=== PATIENT | female | born 1940 | race Caucasian/White ===

== ENCOUNTER 2018-09-28 05:21 | Inpatient (IN) | payer OTHER ==
[2018-09-19 13:01] LABS: URINE BILIRUBIN NEGATIVE (Negative); URINE BLOOD NEGATIVE (Negative); URINE CLARITY CLEAR; URINE COLOR YELLOW; URINE GLUCOSE-RANDOM* NEGATIVE (Negative); URINE KETONES NEGATIVE (Negative); URINE LEUKOCYTES-REFLEX NEGATIVE (Negative); URINE NITRITE-REFLEX NEGATIVE (Negative); URINE PROTEIN (DIPSTICK) NEGATIVE (Negative); URINE UROBILINOGEN 0.2 E.U./dl (0.2-1.0)
[2018-09-19 13:05] LABS: HEMATOCRIT 34.9 % (37.0-47.0); HEMOGLOBIN 11.6 gm/dL (12.0-15.0); MCH 33.2 pg (26.0-34.0); MCHC 33.2 g/dL (28.0-37.0); MCV 99.9 fL (80.0-100.0); RBC 3.49 mil/uL (4.20-5.00); RDW 12.7 % (10.5-14.5); WBC 7.5 thou/uL (4.0-11.0)
[2018-09-19 13:10] LABS: ALBUMIN 3.5 g/dL (3.4-5.0); CALCIUM 9.2 mg/dL (8.5-10.1); CREATININE 1.4 mg/dL (0.6-1.0); POTASSIUM 5.2 mmol/L (3.5-5.1)
[2018-09-19 13:16] LABS: INR 1.1; PROTIME 10.8 Seconds (9.3-11.4)
[~2018-09-28] VITALS: Ht 160 cm; Wt 78.5 kg
--- NOTE | ~2018-09-28 | EKG ---
[address] [address] ELECTROCARDIOGRAM REPORT Name: JONNIECATRACHITO Room #: [facility] IN ..#: [id number] Admission: Attend Phys: Ian Lundberg MD Discharge: Date of : 36 Report #: [id number] THIS REPORT FOR: //name// [facility] Test Date: 2018-09-19 Test Time: 12:59:28 Pat Name: CATRACHITO CRISTINA Department: Room: Gender: F Broadcast Chief Engineer: donna : 1940 Requested By: Ian Lundberg Order Number: [id number] MD: Luis Saunders Measurements Intervals [place] Rate: 55 P: 17 DC: 164 QRS: 44 QRSD: 96 T: 20 QT: 447 QTc: 428 Interpretive Statements Sinus bradycardia Otherwise no significant abnormality No previous ECG available for comparison Electronically Signed On 09-19-2018 17:11:17 CDT by Luis Saunders [email or web address] <ELECTRONICALLY SIGNED> By: Luis Saunders MD, [facility] 09/19/18 1711 [id number] Luis Saunders MD, FACC /EPI
--- NOTE | ~2018-09-28 | O ---
[facility] [place] [address] OPERATIVE REPORT Name: CATRACHITO CRISTINA Room #: 150-1 ADM IN M.R.#: [id number] Admission: 09/28/18 Attend Phys: Ian Lundberg MD Discharge: Date of : 36 Report #: [id number] THIS REPORT FOR: //name// CC: [facility] physician/PCP Ian Lundberg DATE OF SERVICE: 09/28/2018 PREOPERATIVE DIAGNOSIS: Left knee medial compartment osteoarthritis. POSTOPERATIVE DIAGNOSIS: Left knee tricompartmental osteoarthritis. PROCEDURE: Left total knee arthroplasty with Navio assistance. SURGEON: Ian Lundberg MD. CIGAR PATCHER: Christine Ko PA-C. INDICATIONS FOR CIGAR PATCHER: Throughout the case, extensive retraction and manipulation of the knee was required. This was afforded to me by my account management assistant. ANESTHESIA: LMA with an adductor canal block. IMPLANTS: Arvizu and Nephew size 5 Legion cobalt chrome posterior stabilized femur, size 3 tibia, size 11 polyethylene and a size 32 patella. TOURNIQUET TIME: 72 minutes. ESTIMATED BLOOD LOSS: 25 mL. COMPLICATIONS: None. SPECIMENS: None. CONDITION UPON LEAVING THE OPERATING ROOM: Stable. INDICATION FOR PROCEDURE: The patient is an 78-year-old female with left knee medial compartment osteoarthritis. She had failed conservative measures for this and after discussion with her, she elected for left medial compartment arthroplasty versus possible total knee arthroplasty. DESCRIPTION OF PROCEDURE: Risks, benefits, alternatives, complications were discussed in detail with the patient including but not limited to risk of anesthesia, risk of damage to nerves, arteries, blood vessels, risk for infection, bleeding, risk for continued knee pain, need for reoperation. Informed consent was obtained from the patient. Left knee was appropriately [address] [address] OPERATIVE REPORT Name: CATRACHITO CRISTINA Room #: 150-1 ADM IN M.R.#: [id number] Admission: 09/28/18 Attend Phys: Ian Lundberg MD Discharge: Date of : 36 Report #: [id number] marked in the preoperative holding area. Adductor canal block placed by Anesthesia. IV Ancef given for preoperative antibiotics. She was brought to the operating room and placed in supine position on operating room table. LMA anesthesia was induced without complication. Tourniquet was placed on the left thigh. Left lower extremity was prepped and draped in normal sterile fashion. Timeout was performed, properly identifying the patient and procedure as well as the instrumentation and implants. All in the operating room were in agreement. Left lower extremity was exsanguinated, tourniquet was inflated. Tourniquet time was 72 minutes. Standard midline approach to knee was made with 10 blade through the skin. Dissection was taken down sharply to the fascia and deep flaps were developed medially and laterally. A medial parapatellar arthrotomy was made and the knee was inspected. There was severe medial compartment osteoarthritis. There was moderate patellofemoral osteoarthritis. It was decided to proceed with total knee arthroplasty given the amount of patellofemoral arthrosis. Anterior horns of meniscus were removed sharply. ACL was removed sharply. Reference pins were then placed in the femur and the tibia and the knee was then mapped digitally using the Navio robotic account management assistant. Intraoperative plan was made and found to be a size 5 narrow femur and size 3 tibia. After acceptance of the plan, the distal femoral cut was made using the Navio bur and the 4-in-1 size 5 cutting block was placed on the femur. Anterior, posterior, and chamfer cuts were made. After this, attention was turned to the tibia. The remainder of the menisci removed with Bovie cautery. The tibial resection guide was pinned in place using the Navio robotic-assisted for placement. Tibial resection was made. After this flexion and extension gaps were checked and found to be mildly tight medially in extension and a limited medial release was performed using the pie crust technique and an 11 blade. This balanced the knee well. After this, the tibia sized, found to be a size 3. Size 3 tibial trial was pinned and punched and size 5 femoral trial was placed and the box cut was made. This was then trialed with a size 10 and then a size 11 polyethylene and a size 11 polyethylene had the best balance in flexion and extension both medially as well as digitally using the Navio robot. A 9 mm was taken off the posterior surface of the patella and a size 32 patellar trial button was placed. Knee was taken through range of motion, found to be stable, found to have good patellar tracking. Trial components were removed. Bony ends were thoroughly irrigated with normal saline. A final size 3 tibia, size 5 Legion cobalt chrome posterior stabilized femur and a size 32 patella were cemented in place using standard cementation techniques. While the cement cured, a periarticular injection consisting of morphine, ropivacaine, epinephrine and Toradol was placed around the joint capsule and tissues. After the cement cured, the tourniquet was deflated. Hemostasis was obtained with Bovie cautery. A final size 11 polyethylene was placed. A gram of vancomycin was placed deep in the joint. The fascia was closed with 0 Vicryl, skin was closed with 2-0 Vicryl and 3-0 Monocryl. Dermabond and a DANILO dressing was [address] [address] OPERATIVE REPORT Name: CATRACHITO CRISTINA Room #: 150-1 [facility] IN .R.#: [id number] Admission: 09/28/18 Attend Phys: Ina Lundberg MD Discharge: Date of : 36 Report #: [id number] applied. The patient tolerated this procedure well and went to the recovery room under care of anesthesia postoperatively. By: 1636 1709 Ian Lundberg MD /nt
[~2018-09-28 05:21] MED LIST: ADULT ASPIRIN81 MG PO; ATORVASTATIN CA40 MG PO; COLESTIPOL HCL1 G1 PO; DAILY FIBER0.52 GM PO; DILTIAZEM 24HR300 M2 PO; LISINOPRIL-HCT1 EAC2 PO; LUNESTA2 MG PO; VITAMIN B125000 MCG PO; VITAMIN D35000 UNI1 PO
[2018-09-28 13:41] VITALS: BP 123/52
[2018-09-28 17:39] VITALS: BP 101/58
[2018-09-28 20:10] VITALS: BP 99/45
[2018-09-29 04:41] VITALS: BP 103/46
[2018-09-29 06:16] LABS: MCH 34.3 pg (26.0-34.0); MCHC 34.6 g/dL (28.0-37.0); RBC 2.93 mil/uL (4.20-5.00); RDW 12.3 % (10.5-14.5); WBC 11.8 thou/uL (4.0-11.0)
[2018-09-29 07:38] VITALS: BP 97/49
[2018-09-29] MEDS ORDERED: NEURONTIN 300300 M1 PO (11:48)
[2018-09-29] MEDS ORDERED: TRI-BUFFERED A325 M1 PO (11:48)
[2018-09-29 13:02] VITALS: BP 97/49
[2018-09-29 15:47] VITALS: BP 97/49
[2018-09-29 15:53] VITALS: BP 110/45
== END 2018-09-29 17:08 | disposition home or self-care (01) | DRG 470 ==
LOC: 4E 05:21 → TBA 05:21 → PRE 05:42 → 4E 17:00 → ENTRNSPT 09-29 16:23 → 4E 09-29 17:08
PROVIDERS: Orthopaedic Surgery
PROC: 0SRD0J9 Replacement of Left Knee Joint with Synthetic Substitute, Cemented, Open Approach (ICD-10-PCS; principal; 2018-09-28)
DX: M17.12 Unilateral primary osteoarthritis, left knee (principal); I10 Essential (primary) hypertension; E78.5 Hyperlipidemia, unspecified; I25.10 Atherosclerotic heart disease of native coronary artery without angina pectoris; E66.9 Obesity, unspecified; Z68.30 Body mass index [BMI] 30.0-30.9, adult; Z79.899 Other long term (current) drug therapy; Z88.2 Allergy status to sulfonamides
CPT/HCPCS: 10783; 50010; 50101; 50415; 50954; 51130; 51225; 51771; 53000; 53078; 53364; 54118; 56527; 56528; 57095; 57103; 57109; 57110; 57113; 57127; 62110; 62900; 64039; 70005

== ENCOUNTER 2020-01-17 10:18 | Inpatient (IN) | payer OTHER ==
[2020-01-03 13:16] LABS: URINE BILIRUBIN NEGATIVE (Negative); URINE BLOOD NEGATIVE (Negative); URINE CLARITY CLEAR; URINE COLOR YELLOW; URINE GLUCOSE-RANDOM* NEGATIVE (Negative); URINE KETONES TRACE (Negative); URINE LEUKOCYTES-REFLEX NEGATIVE (Negative); URINE NITRITE-REFLEX NEGATIVE (Negative); URINE PROTEIN (DIPSTICK) NEGATIVE (Negative); URINE SPECIFIC GRAVITY 1.025 (1.005-1.035); URINE UROBILINOGEN 0.2 E.U./dl (0.2-1.0)
[2020-01-03 13:17] LABS: HEMATOCRIT 39.5 % (37.0-47.0); HEMOGLOBIN 12.7 gm/dL (12.0-15.0); MCH 31.8 pg (26.0-34.0); MCHC 32.1 g/dL (28.0-37.0); MCV 98.8 fL (80.0-100.0); RDW 13.4 % (10.5-14.5); WBC 12.5 thou/uL (4.0-11.0)
[2020-01-03 13:24] LABS: ALBUMIN 3.4 g/dL (3.4-5.0); CALCIUM 8.4 mg/dL (8.5-10.1); CREATININE 1.5 mg/dL (0.6-1.0); POTASSIUM 4.5 mmol/L (3.5-5.1)
[2020-01-03 13:32] LABS: INR 1.1; PROTIME 11.4 Seconds (9.3-11.4)
[~2020-01-17] VITALS: Ht 160 cm; Wt 83.5 kg
--- NOTE | ~2020-01-17 | O ---
[facility] [place] [address] OPERATIVE REPORT Name: CATRACHITO CRISTINA Room #: 436-P ADM IN M.R.#: [id number] Admission: 01/17/20 Attend Phys: Ian Lundberg MD Discharge: Date of : 36 Report #: [id number] THIS REPORT FOR: cc: ERIN - Luz Marina family physician/PCP ERIN - Luz Marina family physician/PCP Ian Lundberg MD ~ CC: ERIN physician/PCP Ian Lundberg DATE OF SERVICE: 01/17/2020 PREOPERATIVE DIAGNOSIS: Right knee osteoarthritis. POSTOPERATIVE DIAGNOSIS: Right knee osteoarthritis. PROCEDURE: Total knee arthroplasty using Navio robotic wet process miller head assistant. SURGEON: Ian Lundberg MD. CARAMEL CUTTER HAND: Christine Ko PA-C. INDICATIONS FOR CARAMEL CUTTER HAND: Throughout the case, extensive retraction and manipulation of the knee was required. This was afforded to me by my wet process miller head assistant. ANESTHESIA: LMA with an adductor canal block. IMPLANTS: Arvizu and Nephew size 5 narrow Legion cobalt chrome posterior stabilized femur __. TOURNIQUET TIME: 51 minutes. ESTIMATED BLOOD LOSS: 25 mL. COMPLICATIONS: None. SPECIMENS: None. CONDITION UPON LEAVING THE OPERATING ROOM: Stable. INDICATIONS FOR PROCEDURE: The patient is an 79-year-old female with severe right knee osteoarthritis. She had failed conservative measures for this and after discussion with her, she elected for right total knee arthroplasty. DESCRIPTION OF PROCEDURE: Risks, benefits, alternatives, complications were discussed in detail with the patient including but not limited to risk of anesthesia, risk of damage to nerves, arteries, blood vessels, risk for [facility] [address] [place] [address] OPERATIVE REPORT Name: CATRACHITO CRISTINA Room #: 436-P [facility] IN M.R.#: [id number] Admission: 01/17/20 Attend Phys: Ian Lundberg MD Discharge: Date of : 36 Report #: [id number] infection, bleeding, risk for continued knee pain, need for reoperation. Informed consent was obtained from the patient. Right knee was appropriately marked in the preoperative holding area. IV Ancef was given for preoperative antibiotics. She was brought to the operating room and placed in supine position on operating room table. LMA anesthesia was induced without complication. Tourniquet was placed on the right thigh. Right lower extremity was prepped and draped in normal sterile fashion. Timeout was performed properly identifying the patient and procedure as well as the instrumentation and implants. All in the operating room were in agreement. Right lower extremity was exsanguinated, tourniquet was inflated. Tourniquet time was 51 minutes. Standard midline approach to knee was made with 10 blade through the skin. Dissection was taken down sharply to the fascia. Deep flaps were developed medially and laterally. Fresh 10 blade was used to make a medial parapatellar arthrotomy and the knee was inspected. There was severe tricompartmental osteoarthritis. ACL and PCL were removed sharply. Reference pins were placed in the femur and the tibia. The knee was then digitally mapped using the Zoomingo robotic system. Intraoperative plan was made and we sized the size 5 femur with a size 3 tibia and a size 11 spacer. After acceptance of the intraoperative plan, the distal femoral cut was made with a Navio fady. The 4-in-1 cutting block was placed. Anterior, posterior and chamfer cuts were made on the femur. Attention was then turned to the tibia. Remainder of the menisci removed with Bovie cautery. The tibial resection guide was pinned in place using the Navio for placement and tibial resection was made. After this, flexion and extension gaps were checked and found to have good balance in flexion and extension both medially and laterally. Tibia was sized, found to be a size 3. A size 3 tibial trial was placed, pinned and punched. A size 5 femoral trial was placed and the box cut was made. This was then trialed with a size 9 polyethylene. Knee was taken through range of motion, found to be stable, found to have good balance in flexion and extension both medially and laterally. A 9 mm was resected from the posterior surface of the patella and a size 35 patellar trial button was placed. Knee was taken through range of motion, found to be stable, found to have good patellar tracking. Trial components were removed. Bony ends were thoroughly irrigated with normal saline. A final size 3 tibia size 5 Legion narrow cobalt chrome posterior stabilized femur and a size 35 patella were cemented in place using standard cementation techniques. While the cement cured, a periarticular injection again epinephrine and Toradol was placed around the knee joint capsule. After the cement cured, tourniquet was deflated. Hemostasis was obtained with Bovie cautery. Final size 9 polyethylene was placed. A gram of vancomycin was placed deep in the joint. Fascia was closed with 0 Vicryl, skin was closed with 2-0 Vicryl, 3-0 Monocryl. Dermabond and a DANILO dressing was applied. The patient [facility] [address] [place] [address] OPERATIVE REPORT Name: CATRACHITO CRISTINA Room #: 436-P [facility] IN M.R.#: [id number] Admission: 01/17/20 Attend Phys: Ian Lundberg MD Discharge: Date of : 36 Report #: [id number] tolerated this procedure well and went to recovery room under care of anesthesia postoperatively. By: 1622 1728 Ian Lundberg MD /nt
[~2020-01-17 10:18] MED LIST changes: +ALPRAZOLAM 0.50.5 M1 PO; +ASPIR 8181 MG PO; -ATORVASTATIN CA40 MG PO; +CARDIZEM CD 30300 M1 PO; +LIPITOR40 MG PO; +NEURONTIN 300300 M1 PO; +NEURONTIN300 MG PO; +PROBIOTIC1 EAC7 PO; +STOOL SOFTENER100 M1 PO; +TRI-BUFFERED A325 M1 PO; +VITAMIN D3125 MC2 PO; -VITAMIN D35000 UNI1 PO
[2020-01-17 11:32] VITALS: BP 124/54
[2020-01-17 19:27] VITALS: BP 102/50
--- NOTE | 2020-01-18 03:00 | NUR ---
ALERT AND ORIENTED. S/P R TKR. DANILO DRSG AND POLAR TABBY IN PLACE. PT BEEN ABLE TO WALK TO THE BATHROOM USING WALKER AND GAITBELT. DENIES ANY NAUSEA OR VOMITING-EATING REGUALR FOOD.PROGRESSING TOWARD CARE GOALS.
[2020-01-18 04:24] VITALS: BP 116/58
[2020-01-18 06:02] LABS: HEMATOCRIT 29.8 % (37.0-47.0); HEMOGLOBIN 10.1 gm/dL (12.0-15.0); MCH 33.1 pg (26.0-34.0); MCHC 33.9 g/dL (28.0-37.0); MCV 97.7 fL (80.0-100.0); RBC 3.05 mil/uL (4.20-5.00); RDW 13.2 % (10.5-14.5); WBC 7.2 thou/uL (4.0-11.0)
[2020-01-18 07:28] VITALS: BP 115/57
[2020-01-18] MEDS ORDERED: ASPIR 8181 MG PO (09:47)
--- NOTE | 2020-01-18 13:50 | NUR ---
PT ADMITTED RELATED TO RIGHT TKR. CM REVIEWED CHART AND SPOKE WITH CARE TEAM. CM MET WITH PT AT BEDSIDE THIS DAY. PT IS A&O X4. CM ROLE INTRODUCED. PT INDICATED THAT SHE LIVES IN A HOUSE WITH HER SPOUSE WITH 4 STEPS TO ENTER AND 12 STEPS TO BASEMENT. PT INDICATED SHE HAS A FWW FOR HOME USE. PT INDICATED SHE HAS OP PT APPOINTMENT HERE AT [facility] ON WEDNESDAY. IT IS ANTICIPATED THAT PT WILL DISCHARGE HOME THIS DAY. NO OTHER CM INTERVENTION INDICATED. CASE CLOSED.
--- NOTE | 2020-01-18 14:03 | NUR ---
ASSUMED CARE OF THE PT AT 0700. PT IS UP WITH ASSIST, WORKED WITH PT WITH GAIT BELT AND WALKER/ CLEARED FOR DC. L HAND IV DRY AND INATCT AND D/C'D. PAIN CONTROLELD BY PAIN MEDS. PT IS RA. KAYLYNN SWAIN, SCD'S POLAR PACK AND DANILO DRESSING IN PLACE. PT BELONGINGS SENT WITH PT, PPWK SIGNED AND RX'S FIVEN TO PT.
[2020-01-18 14:07] VITALS: BP 115/57
== END 2020-01-18 14:31 | disposition home or self-care (01) | DRG 470 ==
LOC: TBA 10:18 → 4S 10:18 → TBA 12:26 → 4S 16:05 → TBA 23:12 → ENTRNSPT 01-18 14:17 → EDTRNSPTSTS 01-18 14:19 → 4S 01-18 14:31
PROVIDERS: ADMIT Orthopaedic Surgery
PROC: 0SRC0J9 Replacement of Right Knee Joint with Synthetic Substitute, Cemented, Open Approach (ICD-10-PCS; principal; 2020-01-17)
PROC: 8E0Y0CZ Robotic Assisted Procedure of Lower Extremity, Open Approach (ICD-10-PCS; principal; 2020-01-17)
DX: M17.11 Unilateral primary osteoarthritis, right knee (principal); Z88.2 Allergy status to sulfonamides; Z79.899 Other long term (current) drug therapy; Z79.82 Long term (current) use of aspirin
CPT/HCPCS: 10102; 50010; 50101; 50415; 50954; 51130; 51225; 51320; 52001; 52282; 53078; 54118; 56527; 56528; 57095; 57103; 57104; 57110; 57127; 57180; 64042; 70005

== ENCOUNTER → 2020-12-10 | Outpatient (CLI) | payer OTHER ==
[~2020-12-10] VITALS: Ht 7.6 cm; Wt 85.5 kg
[~2020-12-10] MED LIST changes: +CARDIZEM CD300 MG PO; +COQ1050 MG PO; +DICLOFENAC POTA50 MG PO; +FISH OIL 1,0001 EAC9 PO
--- NOTE | ~2020-12-10 | HPC ---
[facility] [address] [place] [address] PAIN MANAGEMENT CONSULTATION Name: CATRACHITO CRISTINA Room #: REG MJ Belén.#: [id number] Admission: 12/10/20 Attend Phys: Olegario Matthews DO Discharge: Date of : 38 Report #: [id number] THIS REPORT FOR: cc: ERIN - No family physician/PCP FAM - No family physician/PCP Olegario Matthews DO ~ DATE OF SERVICE: 12/10/2020 CHIEF COMPLAINT: Low back pain, left lower extremity pain and paresthesias. HISTORY OF PRESENT ILLNESS: As you know, the patient is an 80-year-old female who reports acute onset of low back pain, left lower extremity pain and paresthesia that began 09/30/2020. The patient denies injury or trauma. She states her pain began spontaneously and progressively worsened. She sought evaluation after noting no improvement in symptoms with rest, relaxation and cmfr-ekx-sjrgsvk medications. She was subsequently then referred to undergo MRI of the lumbar spine, which was obtained 11/28/2020. Those findings showed wblrvkun-tm-yvuzqe multilevel lumbar spondylosis and dqzdhjsa-tc-alptqn central canal stenosis, prompting a referral to our clinic to discuss interventional treatment options. The patient reports today her pain is continuous. She describes the pain as burning, shooting, crushing, sharp, numbness and tingling, placing current pain score 10/10, daily average at 10/10, worst pain has been is 10/10. The patient states pain is exacerbated with walking, improves with sitting and lying down. She has been referred to our service to discuss treatment options to address suspected lumbar radiculopathy secondary to central canal stenosis. PAST MEDICAL HISTORY: 1. Hypertension. 2. Hyperlipidemia. 3. Chronic insomnia. 4. Diverticular disease of the colon. 5. History of heart murmur. 6. Degenerative joint disease. 7. Osteoarthritis. PAST SURGICAL HISTORY: 1. Left total knee arthroplasty. 2. Right total knee arthroplasty. 3. Hysterectomy. SOCIAL HISTORY: The patient denies tobacco, IV or illicit drug use. Admits to approximately 3 alcoholic beverages per week. She is retired, not working, not receiving workmen's compensation nor is she trying to obtain disability benefits. She is not in litigation in regards to pain. She is unaccompanied at [address] [address] PAIN MANAGEMENT CONSULTATION Name: CATRACHITO CRISTINA Room #: REG MJ Clark#: [id number] Admission: 12/10/20 Attend Phys: Olegario Matthews DO Discharge: Date of : 38 Report #: [id number] today's visit. REVIEW OF SYSTEMS: Positive for cataracts, shortness of breath walking or lying flat, heart trouble, palpitations, frequent diarrhea interspersed with constipation, rectal bleeding, rash and itching, varicose veins, lightheadedness and dizziness, numbness and tingling sensations, insomnia, low back pain, left lower extremity pain with paresthesias. All other review of systems negative per 12-point review of systems other than those listed in history of present illness. Pain impact score 37/70 indicating moderate interference of daily activities secondary to pain. ALLERGIES: SULFA. CURRENT MEDICATIONS: Cartia XT 300 mg once a day, Lipitor 20 mg per day, lisinopril 5 mg per day, alprazolam 0.5 mg once a day, vitamin B12 one mg once a day, multivitamin 1 tab per day. IMAGING: MRI lumbar spine obtained on 11/28/2020 shows T12-L1 with disk bulge, mild facet arthropathy, mild central canal stenosis, mild bilateral neural foraminal narrowing. L1-2 shows disk bulge, mild facet arthropathy, moderate central canal stenosis, mild bilateral neural foraminal narrowing. L2-3 shows a disk bulge, mild facet arthropathy, moderate central canal stenosis, moderate bilateral neural foraminal narrowing. L3-4 shows mild facet arthropathy, disk bulge, mild ligamentum flavum hypertrophy leading to lmtusmzw-as-enwunj central canal stenosis, pcgbbrpe-fg-fwubzn right and mild left neural foraminal narrowing. L4-5 shows disk bulge, moderate facet arthropathy, moderate spinal stenosis and kryj-sd-uxigrtnj neural foraminal narrowing. L5-S1 shows mild facet degenerative changes, disk bulge, mild central canal and mild neural foraminal narrowing. PQRS: The patient has known arthritic changes of the lumbar spine, bilateral hips and knees. No rheumatoid arthritis. She is not a fall risk, has not had a fall in last 3 months. She is treated for hypertension, but she is not on any chronic anticoagulants. She is not on any opioids, has a low opiate addiction potential based on assessment tool. Pain impact is 37/70, moderate interference of daily activities secondary to pain. PHYSICAL EXAMINATION: VITAL SIGNS: Blood pressure 147/83, pulse 72, respiratory rate 16 and unlabored. The patient is 98% on room air. Height 5 feet 3 inches tall, weight 188.6 pounds, BMI calculated 34.66. GENERAL: Well-developed, well-nourished, well-hydrated 80-year-old female appearing her stated age. She is in no acute distress, awake, alert and oriented x 3. Current pain score is rated around 9/10. [address] [address] PAIN MANAGEMENT CONSULTATION Name: CATRACHITO CRISTINA Room #: REG [facility]#: [id number] Admission: 12/10/20 Attend Phys: Olegario Matthews DO Discharge: Date of : 38 Report #: [id number] HEENT: Normocephalic, atraumatic. Pupils are round and reactive. Speech is fluent. The patient deemed a good historian. Hearing is appropriate. She is wearing a mask in compliance with COVID-19 regulations. LUNGS: Clear, no wheeze, rhonchi or rales. CARDIOVASCULAR: Regular. No appreciable gallop, no rub. ABDOMEN: Soft, nontender. EXTREMITIES: Show no clubbing, no cyanosis, and no edema. MUSCULOSKELETAL: Lower extremity strength is equal and symmetrical, though giveaway strength is noted on the left due to pain generation when compared to the right. Muscle bulk and tone is equal and symmetrical in comparing lower extremities. She is intact to light touch from L1 through S2 dermatomes. Deep tendon reflexes are diminished, but symmetrical, 1+/4 at patella and Achilles. Seated straight leg raising negative. Supine straight leg raising positive on the left. Jacek's test is negative. Gait is antalgic favoring left lower extremity over right. ASSESSMENT: 1. Symptomatic lumbar radiculopathy. 2. 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 3. Displacement of lumbar intervertebral disk with radiculopathy. 4. Lumbosacral spondylosis with radiculopathy. 5. Neural foraminal stenosis of lumbar spine. 6. Facet arthropathy of the lumbar spine. 7. Chronic intractable pain. PLAN: 1. Based on today's physical exam and history the patient has provided, the description the patient uses in regards to pain as well as the location of symptoms, which typically radiate down the left leg, but at night, she begins to experience paresthesias on the right leg. This would be consistent with central canal stenosis, the most significant of those findings at the L3-4 level based on recent imaging, which shows xwztoxvl-kl-hdfdaw central canal stenosis. We discussed with the patient the findings of her MRI and how they correlate to her current symptoms after this discussion, which took over 18 minutes of time as we had to describe the findings to the patient and then reiterate those findings to her who came late to the appointment. We then discussed the following for treatment options. We discussed physical therapy, stretching exercises and core strengthening as a treatment approach. We discussed medication management with suggestions of treatment to include amitriptyline, nortriptyline, Cymbalta, Lyrica or gabapentin. We discussed lumbar epidural injection under fluoroscopic guidance. We also discussed spinal cord stimulator therapy and surgical options that may be necessary to address the central canal stenosis at the L3-4 level. After reviewing the risks and benefits of all proposed treatment options, the patient chose to begin with medication management. [address] [address] PAIN MANAGEMENT CONSULTATION Name: CATRACHITO CRISTINA Room #: REG CLAnita Clark#: [id number] Admission: 12/10/20 Attend Phys: Olegario Matthews DO Discharge: Date of : 38 Report #: [id number] 2. The patient will be started on gabapentin. She is currently taking 300 mg at night. She will increase to 600 mg starting this evening and continue for 3 nights. She will then increase her medication to 900 mg for 3 nights at night. If no improvement in symptoms, no side effects of sleepiness, disorientation, confusion, mental slowing, she can then increase to 300 mg morning and 900 mg at night, continuing for 3 nights. If no improvement in symptoms, no side effects, then continue to escalate to 600 mg in the morning and 900 mg at night for 3 days. No improvement in symptoms, no side effects, continue the 900 mg b.i.d. She will continue this titration until reaching 900 mg morning and 900 mg at noon and 900 mg at night. The patient was advised anytime during the titration, she notes improvement in symptoms, stabilize at that dose, no further escalation. No improvement in symptoms, no side effects, continue the titration as directed. The patient was advised to watch for side effects of sleepiness, disorientation, confusion, mental slowing. If she notes any side effects, reduce to the dose prior, contact our clinic. 3. We plan to see the patient back in followup visit in approximately 2-3 weeks. At that time, we will review the efficacy of the medication provided today. If the patient is noticing no side effects, but no improvement in symptoms, we will discuss with the patient the possibility of undergoing a lumbar epidural injection or potentially rotating medications. 4. We wish to thank nurse practitioner, Sandy Mojica for the opportunity to see this patient in consultation. We will keep you apprised of response to treatment as we address lumbar radiculopathy secondary to central canal stenosis. Again, we wish to thank you for the opportunity to see the patient in consultation. By: [id number] Olegario Matthews DO /nt
[2020-12-10 12:50] VITALS: BP 147/83
--- NOTE | 2020-12-10 13:03 | NUR ---
Pain Clinic Assessment: 1. History of Osteoarthritis: Not Applicable History of Rheumatoid Arthritis: Not Applicable 2. Height: 5 ft. 3 in. 7.6 cm. Weight: 188.6 lb. oz. 85.548 kg. Patient's BMI: 98925.9 3. Vital Signs: BP: 147/83 Pulse: 72 Resp: 16 Temp: 02 Sat: 98 ECG Mon: 4. Pain Intensity: 9 5. Fall Risk: Dizziness: N Needs help standing or walking: N Fallen in the last 3 months: N Fall risk comments: 6. Patient on Blood Thinner: 7. History of Hypertension: Y 8. Opioid Therapy greater than 6 weeks: N Opiate Contract Signed: 9. Risk Assessment Tool Provided: 10. Functional Assessment Tool: 0 LOW RISK 11. Recreational Drug Use: Never Drug Type: Tobacco Use: Never Smoker Tobacco Type: Amount or Packs/day: How Many Years: Alcohol Use: Yes Frequency: Special Occasions Quant: 2
== END ==
LOC: PAIN 06:55
PROVIDERS: ATTEND Anesthesiology Pain Medicine
DX: M51.16 Intervertebral disc disorders with radiculopathy, lumbar region (principal); M48.061 Spinal stenosis, lumbar region without neurogenic claudication; M47.26 Other spondylosis with radiculopathy, lumbar region; G89.4 Chronic pain syndrome; Z79.891 Long term (current) use of opiate analgesic

== ENCOUNTER → 2020-12-24 | Outpatient (CLI) | payer OTHER ==
[~2020-12-24] VITALS: Ht 160 cm; Wt 88.6 kg
[2020-12-24 10:52] VITALS: BP 146/63
--- NOTE | 2020-12-24 11:15 | NUR ---
Pain Clinic Assessment: 1. History of Osteoarthritis: Not Applicable History of Rheumatoid Arthritis: Not Applicable 2. Height: 5 ft. 3 in. 160.0 cm. Weight: 195.4 lb. oz. 88.633 kg. Patient's BMI: 34.6 3. Vital Signs: BP: 146/63 Pulse: 81 Resp: 20 Temp: 02 Sat: 98 ECG Mon: 4. Pain Intensity: 6-7 5. Fall Risk: Dizziness: N Needs help standing or walking: Y Fallen in the last 3 months: N Fall risk comments: 6. Patient on Blood Thinner: 7. History of Hypertension: Y 8. Opioid Therapy greater than 6 weeks: N Opiate Contract Signed: 9. Risk Assessment Tool Provided: 10. Functional Assessment Tool: 0 LOW RISK 11. Recreational Drug Use: Never Drug Type: Tobacco Use: Never Smoker Tobacco Type: Amount or Packs/day: How Many Years: Alcohol Use: Yes Frequency: Quant:
--- NOTE | 2020-12-25 10:29 | HPC ---
[facility] [address] [place] [address] PAIN MANAGEMENT CONSULTATION Name: CATRACHITO CRISTINA Room #: REG Anita MShannan.#: [id number] Admission: 12/24/20 Attend Phys: Olegario Matthews DO Discharge: Date of : 38 Report #: [id number] THIS REPORT FOR: cc: RENEE CASTREJON Physician not on staff Olegario Matthews DO ~ DATE OF SERVICE: 12/24/2020 CHIEF COMPLAINT: Low back pain, left lower extremity pain with paresthesias. HISTORY OF PRESENT ILLNESS: As you know, the patient is a very pleasant 80-year-old female reporting acute onset of low back pain, left lower extremity pain with paresthesias that began 09/30/2020. Denied injury or trauma. We saw the patient in consultation on 12/10/2020, as the patient was not seeing improvement in symptoms. She was diagnosed as lumbar radiculopathy secondary to cunszius-ro-dpgesd central canal stenosis. The patient's central canal stenosis was multifactorial due to facet arthropathy and displacement of lumbar intervertebral disk. We discussed with the patient the various treatment options and started the patient on medications to control symptoms. She is now taking gabapentin 900 mg in the morning and 900 mg at night with improvement in analgesia. She has now had a reduction in symptoms from her high of 10/10 down to about 6/10. She is only experiencing pain in the morning hours at this time. Otherwise, pain is well controlled. She returns today for further adjustments in medication management and discuss other options for treatment if necessary. ALLERGIES: SULFA. CURRENT MEDICATIONS: Coenzyme Q10 50 mg once a day, diclofenac potassium 50 mg 3 times a day, gabapentin 900 mg morning and 900 mg at night, diltiazem CD 300 mg once a day, omega-3 fish oil 1 tab per day, aspirin 81 mg per day, cyanocobalamin 5000 mcg per day, alprazolam 0.5 mg p.o. at bedtime, vitamin D3 125 mcg per day, atorvastatin 40 mg per day, lisinopril/hydrochlorothiazide 20/25 mg once a day. IMAGING: No new imaging available. PQRS: The patient has known arthritic changes of the lumbar spine, bilateral hips, and knees. No rheumatoid arthritis. She is not a fall risk, has not had a fall in the last 3 months. She is not on blood thinners, but is treated for hypertension. She is not on chronic opioids, has a low opioid addiction potential. She is placing pain impact today at a 37/70, moderate effect on daily activity. PHYSICAL EXAMINATION: VITAL SIGNS: Blood pressure 146/63, pulse 81, respiratory rate 20 and unlabored. The patient is 98% on room air. Height 5 feet 3 inches tall, weight [facility] [address] [place] [address] PAIN MANAGEMENT CONSULTATION Name: CATRACHITO CRISTINA Room #: REG CLI ..#: [id number] Admission: 12/24/20 Attend Phys: Olegario Matthews DO Discharge: Date of : 38 Report #: [id number] 195.4 pounds, BMI calculated 34.6. GENERAL: Well-developed, well-nourished, well-hydrated, 80-year-old female appearing her stated age. She is in no acute distress, awake, alert and oriented x 3. Current pain score is rated around 6/10. HEENT: Normocephalic, atraumatic. Pupils are round and responsive. The patient is wearing a mask in compliance with COVID-19 regulations. LUNGS: Appear clear. There are no audible rhonchi, cough or rales. CARDIOVASCULAR: Regular. No appreciable gallop, no rub. ABDOMEN: Soft, mildly obese. EXTREMITIES: Show no clubbing, no cyanosis, and no edema. MUSCULOSKELETAL: Lower extremity strength remains symmetrical, but deconditioned. Seated straight leg raising negative. Supine straight leg raising positive on the left. Jacek's test is negative. Gait remains mildly antalgic favoring the left lower extremity over right. Muscle bulk and tone equal and symmetrical in lower extremities. ASSESSMENT: 1. Symptomatic lumbar radiculopathy. 2. Wjrfmebt-nd-qqkinf central canal stenosis of lumbar spine. 3. Displacement of lumbar intervertebral disk with radiculopathy. 4. Lumbosacral spondylosis with radiculopathy. 5. Neural foraminal stenosis of lumbar spine. 6. Facet arthropathy of the lumbar spine. 7. Chronic intractable pain. PLAN: 1. The patient returns today in followup visit having noted excellent improvement in symptoms with the gabapentin therapy. She is very pleased with response to treatment. She is only experiencing symptoms now upon arising from bed, which she states is somewhat difficult, but resolved within the first hour after taking her gabapentin. She returns to discuss options for treatment. At this point, we would recommend adjustments further in her medication and she is seeing good benefit, no side effects of sleepiness, disorientation, confusion, or mental slowing with the gabapentin. 2. Recommend increasing the gabapentin from 900 mg b.i.d. to 900 mg in the morning and 1200 mg at night. Continue for 5-7 nights. If no improvement in symptoms and no side effects, then increase to 900 mg in the morning and 1500 mg at night in hopes of improving the awakening pain that she has been experiencing of late, the only residual pain that remains. We are hopeful that these adjustments in medication will provide good benefit. She will contact our clinic once she reaches an efficacious level of medication. We will then call in prescriptions for her and have her follow up with PCP to continue the therapy. We are pleased to see the patient has done well initially with these adjustments in medication management and hopeful to see similar improvement with this increase today. 3. We have plans to see the patient back in followup visit in approximately one [facility] [address] [place] [address] PAIN MANAGEMENT CONSULTATION Name: CATRACHITO CRISTINA Room #: REG MJ Melissa.#: [id number] Admission: 12/24/20 Attend Phys: Olegario Matthews DO Discharge: Date of : 38 Report #: [id number] month. At that time, we will review the efficacy of the medication and determine if any other adjustments have to be made. We are hopeful the patient will see good benefit and have already contacted our clinic and prescriptions will have been already called into her local pharmacy, but we will be available to see her back in a month. <ELECTRONICALLY SIGNED> By: Oleagrio Matthews DO 12/25/20 1029 [id number] Olegario Matthews DO /nt
== END ==
LOC: PAIN 06:50
PROVIDERS: ATTEND Anesthesiology Pain Medicine
DX: M51.16 Intervertebral disc disorders with radiculopathy, lumbar region (principal); M47.26 Other spondylosis with radiculopathy, lumbar region; M48.061 Spinal stenosis, lumbar region without neurogenic claudication; M79.605 Pain in left leg; R20.2 Paresthesia of skin; G89.29 Other chronic pain; Z88.8 Allergy status to other drugs, medicaments and biological substances; Z79.899 Other long term (current) drug therapy

== ENCOUNTER → 2021-05-06 | Outpatient (CLI) | payer OTHER ==
[~2021-05-06] VITALS: Ht 160 cm; Wt 86.3 kg
[~2021-05-06] MED LIST changes: +ASA81BEC PO
--- NOTE | ~2021-05-06 | HPC ---
[address] [address] PAIN MANAGEMENT CONSULTATION Name: CATRACHITO CRISTINA Room #: REG [facility].#: [id number] Admission: 05/06/21 Attend Phys: Olegario Matthews DO Discharge: Date of : 38 Report #: [id number] THIS REPORT FOR: cc: RENEE CASTREJON Physician not on staff Olegario Matthews DO ~ DOC #: [id number] cc: NAIF Blue DO DATE OF SERVICE: 05/06/2021 REFERRING PHYSICIAN: Renee Castrejon NP CHIEF COMPLAINT: Low back pain, left lower extremity pain with paresthesias. HISTORY OF PRESENT ILLNESS: As you know, the patient is a very pleasant 81-year-old female returning in followup visit requesting to undergo lumbar epidural injection under fluoroscopic guidance. As you are aware, the patient has been dealing with longstanding lumbar radiculopathy, which originally presented on 09/30/2020 without inciting injury or trauma. We made adjustments in her medication management. She has been doing fairly well, but continues to experience pain that she wishes to address with lumbar epidural injection. Pain at its best is 1/10, worst is over 6/10. She has returned today in followup visit requesting a lumbar epidural injection under fluoroscopic guidance. ALLERGIES: SULFA. CURRENT MEDICATIONS: See chart. SOCIAL HISTORY: The patient denies tobacco, alcohol or IV or illicit drug use. She is retired, accompanied by her present in room today. IMAGING: No new imaging available. PQRS: The patient has known arthritic changes of lumbar spine, bilateral hips and knees. No rheumatoid arthritis. She is placing current pain intensity at a 1-3/10. She is not a fall risk, has not had a fall in last 3 months. She is not on blood thinners, but is treated for hypertension. She is not on chronic opioids, has a low opiate addiction potential based on our assessment tool. Pain impact is classified as a 37/70, moderate interference of daily activities secondary to pain. PHYSICAL EXAMINATION: VITAL SIGNS: Blood pressure 125/55, pulse is 60, respiratory rate 18 and unlabored. The patient 97% on room air. Height 5 feet 3 inches tall, weight 190.2 pounds, BMI calculated 33.7. [address] [address] PAIN MANAGEMENT CONSULTATION Name: CATRACHITO CRISTINA Room #: REG [facility].#: [id number] Admission: 05/06/21 Attend Phys: Olegario Matthews DO Discharge: Date of : 38 Report #: [id number] GENERAL: Well-developed, well-nourished, well-hydrated 81-year-old female appearing her stated age. Pain is rated today 1-3/10. HEENT: Normocephalic, atraumatic. Pupils are round and responsive. EXTREMITIES: Show no clubbing, no cyanosis. No appreciable edema. MUSCULOSKELETAL: Lower extremity strength remains symmetrical, but there is noted deconditioning. Seated straight leg raising negative. Supine straight leg raising positive on the left at about 70-degree angle. Ankle clonus negative. Babinski is negative. Gait mildly antalgic favoring left lower extremity over right. ASSESSMENT: 1. Symptomatic lumbar radiculopathy. 2. 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 3. Displacement of lumbar intervertebral disk with radiculopathy. 4. Lumbosacral spondylosis with radiculopathy. 5. Neural foraminal stenosis of lumbar spine. 6. Facet arthropathy, lumbar spine. 7. Chronic intractable pain. PLAN: 1. The patient returns today in followup visit requesting to undergo lumbar epidural injection under fluoroscopic guidance to address her residual -01/29 pain. The patient and I discussed the risks and the benefits of this procedure. These risks include but are not necessarily limited to bleeding, bruising, infection, worsening pain, no relief of pain, also risk of temporary or permanent muscle weakness, temporary or permanent nerve damage, possible paralysis, post-dural puncture headache and . The patient states understood and wished to proceed. 2. No medication changes made at today's visit. The patient will continue current medical therapy as prior prescribed. 3. We plan to see the patient back in followup visit on an as needed basis for the next in the series of epidural injections. We are hopeful the patient will see good and prolonged benefit with the epidural injection provided today. PROCEDURE NOTE. DESCRIPTION OF PROCEDURE: L5-S1 left paramedian epidural steroid injection under fluoroscopic guidance. This is the first procedure of the first series that the patient is undergoing. After obtaining written consent, the patient was taken back to the fluoroscopy suite, placed in a prone position with pillow under the abdomen to decrease lumbar lordosis. The skin overlying the lumbosacral area was then prepped and draped in aseptic fashion. The L5-S1 vertebral interspace was then identified by AP fluoroscopy. The skin and subcutaneous tissue overlying the target site [address] [address] PAIN MANAGEMENT CONSULTATION Name: CATRACHITO CRISTINA Room #: REG [facility] Melissa#: [id number] Admission: 05/06/21 Attend Phys: Olegario Matthews DO Discharge: Date of : 38 Report #: [id number] of injection was anesthetized with 3 mL 1% lidocaine. A 20-gauge 4-1/2 inch Tuohy needle was then advanced under fluoroscopic guidance towards the epidural space using a left paramedian approach. The epidural space was identified using loss of resistance to air technique. After negative aspiration for heme or cerebrospinal fluid, a total of 1 mL of Omnipaque was injected. A lumbar epidurogram was confirmed using both AP and lateral fluoroscopy. After negative aspiration for heme or cerebrospinal fluid, 5 mL of a solution containing 2 mL 40 mg per mL 80 mg total triamcinolone along with 3 mL of lidocaine 1% was injected in increments. Contrast spread was noted posterior epidural space. The needle was then retracted approximately half way and needle tract flushed with 1 mL of 1% of lidocaine. Needle was then removed. There were no apparent sensory or motor deficits in the lower extremity following the procedure. A sterile bandage was placed over the injection site. The heart rate, pulse, oximetry and blood pressure were continuously monitored after the procedure. There were no apparent complications. The patient tolerated the procedure well and was carefully escorted to the recovery room in stable condition. There were no apparent complications. After meeting discharge criteria, the patient was then discharged home. Olegario Matthews DO JEJ/EKT By: [id number] Olegario Matthews DO /nt
[2021-05-06 10:46] VITALS: BP 125/55
--- NOTE | 2021-05-06 11:07 | NUR ---
Pain Clinic Assessment: 1. History of Osteoarthritis: Not Applicable History of Rheumatoid Arthritis: Not Applicable 2. Height: 5 ft. 3 in. 160.0 cm. Weight: 190.2 lb. oz. 86.274 kg. Patient's BMI: 33.7 3. Vital Signs: BP: 125/55 Pulse: 60 Resp: 18 Temp: 02 Sat: 97 ECG Mon: 4. Pain Intensity: 1 5. Fall Risk: Dizziness: Y Needs help standing or walking: N Fallen in the last 3 months: N Fall risk comments: 6. Patient on Blood Thinner: None 7. History of Hypertension: Y 8. Opioid Therapy greater than 6 weeks: N Opiate Contract Signed: 9. Risk Assessment Tool Provided: 10. Functional Assessment Tool: 0 LOW RISK 11. Recreational Drug Use: Never Drug Type: Tobacco Use: Never Smoker Tobacco Type: Amount or Packs/day: How Many Years: Alcohol Use: Yes Frequency: Weekly Quant: 2
== END | disposition home or self-care (01) ==
LOC: PAIN 06:58
PROVIDERS: ATTEND Anesthesiology Pain Medicine
DX: M51.16 Intervertebral disc disorders with radiculopathy, lumbar region (principal); M47.27 Other spondylosis with radiculopathy, lumbosacral region; M47.26 Other spondylosis with radiculopathy, lumbar region; M48.061 Spinal stenosis, lumbar region without neurogenic claudication; G89.29 Other chronic pain; I10 Essential (primary) hypertension; M19.90 Unspecified osteoarthritis, unspecified site; Z98.890 Other specified postprocedural states; Z79.899 Other long term (current) drug therapy; Z88.2 Allergy status to sulfonamides

== ENCOUNTER → 2021-06-18 | Outpatient (CLI) | payer OTHER ==
[~2021-06-18] VITALS: Ht 160 cm; Wt 87.8 kg
--- NOTE | ~2021-06-18 | HPC ---
[facility] [place] [address] PAIN MANAGEMENT CONSULTATION Name: CATRACHITO CRISTINA Room #: REG Anita Renetta.#: [id number] Admission: 06/18/21 Attend Phys: Olegario Matthews DO Discharge: Date of : 38 Report #: [id number] THIS REPORT FOR: cc: RENEE CASTREJON Physician not on staff Olegario Matthews DO ~ cc: Renee Castrejon NP DATE OF SERVICE: 06/18/2021 REFERRING PHYSICIAN: Renee Castrejon NP CHIEF COMPLAINT: Low back pain, left lower extremity pain with paresthesias. HISTORY OF PRESENT ILLNESS: As you know, the patient is an 81-year-old female with longstanding history of lumbar radicular symptoms. She returns today in followup visit requesting a lumbar epidural injection under fluoroscopic guidance. The patient reports pain anywhere from 1-9/10 depending on activity. The patient states pain begins in low back, radiates down the left leg. She received 70% improvement in overall pain with the epidural injection provided at last visit. Unfortunately, her symptoms have begun to return. No inciting injury or trauma. She returns today for the next in the series of lumbar epidural injections. ALLERGIES: SULFA. CURRENT MEDICATIONS: See chart. SOCIAL HISTORY: The patient denies tobacco, alcohol or IV or illicit drug use. She is retired, retired years ago, accompanied by her present in room today. IMAGING: No new imaging available. PQRS: The patient has known arthritic changes of lumbar spine, bilateral hips and knees. No rheumatoid arthritis. She is placing pain anywhere from 1-9/10. She is a fall risk and did have a fall on 06/16/2021 getting up out of bed. She is making adjustments in her bedroom to alleviate this issue further. She is not on blood thinners, but is treated for hypertension. She is on no chronic opioids, has a low opioid addiction potential based on assessment tool. Pain impact is 37/70, moderate interference of daily activities secondary to pain. PHYSICAL EXAMINATION: VITAL SIGNS: Blood pressure 134/57, pulse 81, respiratory rate 20, unlabored. The patient is 96% on room air. Height 5 feet 3 inches tall, weight 193.6 pounds, BMI calculated 34.3. GENERAL: Well-developed, well-nourished, well-hydrated 81[place] [address] PAIN MANAGEMENT CONSULTATION Name: CATRACHITO CRISTINA Room #: REG CLI Eduardo#: [id number] Admission: 06/18/21 Attend Phys: Olegario Matthews DO Discharge: Date of : 38 Report #: [id number] appearing stated age, pain is rated today 1-9/10. HEENT: Normocephalic, atraumatic. EXTREMITIES: Show no clubbing, no cyanosis and no edema. MUSCULOSKELETAL: Lower extremity strength is symmetrical, but deconditioned. Seated straight leg raising negative. Supine straight leg raising positive on the left. IRMA test is negative. Gait is mildly antalgic favoring the left lower extremity to the right. Ankle clonus negative. Babinski is negative. ASSESSMENT: 1. Symptomatic lumbar radiculopathy. 2. 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 3. Displacement of lumbar intervertebral disk with radiculopathy. 4. Lumbosacral spondylosis with radiculopathy. 5. Foraminal stenosis of lumbar spine. 6. Facet arthropathy of lumbar spine. 7. Chronic intractable pain. PLAN: 1. The patient returns today in followup visit requesting to undergo lumbar epidural injection under fluoroscopic guidance. The patient reports about a 70% improvement in overall pain with the epidural injection provided at last visit. Unfortunately, her symptoms have reoccurred. She returns today in followup visit requesting next in the series to be performed. She has been advised risks and benefits of the procedure, states understood and wished to proceed. 2. No medication changes made at today's visit. The patient will continue current medical therapy as prior prescribed. 3. We will see the patient back in followup visit for the next in the series of lumbar epidural injections on an as needed basis. We are hopeful the patient will see once again good and prolonged benefit with the epidural injection. DESCRIPTION OF PROCEDURE: L5-S1 left parasagittal epidural steroid injection under fluoroscopic guidance. This is the second procedure of the first series that the patient is undergoing. After obtaining written consent, the patient was taken back to the fluoroscopy suite, placed in a prone position with pillow under the abdomen to decrease lumbar lordosis. The skin overlying the lumbosacral area was then prepped and draped in aseptic fashion. The L5-S1 vertebral interspace was then identified by AP fluoroscopy. The skin and subcutaneous tissue overlying the target site of injection was anesthetized with 3 mL 1% lidocaine. A 20-gauge, 3-1/2-inch Tuohy needle was then advanced under fluoroscopic guidance towards the epidural space using a left parasagittal approach. The epidural space was identified using loss of resistance to air technique. After negative aspiration for heme or cerebrospinal fluid, a total of 1mL of Omnipaque [address] [address] PAIN MANAGEMENT CONSULTATION Name: CATRACHITO CRISTINA Room #: REG [facility]#: [id number] Admission: 06/18/21 Attend Phys: Olegario Matthews DO Discharge: Date of : 38 Report #: [id number] was injected. A lumbar epidurogram was confirmed using both AP and lateral fluoroscopy. After negative aspiration for heme or cerebrospinal fluid, 5 mL of a solution containing 2 mL 40 mg per mL 80 mg total triamcinolone along with 3 mL of lidocaine 1% was injected in increments. Contrast spread was noted in the posterior epidural space. The needle was then retracted approximately half way and needle tract flushed with 1 mL of 1% lidocaine. Needle was then removed. There were no apparent sensory or motor deficits in the lower extremity following the procedure. A sterile bandage was placed over the injection site. The heart rate, pulse, oximetry and blood pressure were continuously monitored after the procedure. There were no apparent complications. The patient tolerated the procedure well and was carefully escorted to the recovery room in stable condition. There were no apparent complications. After meeting discharge criteria, the patient was then discharged home. By: [id number] Olegario Matthews DO /nt
[2021-06-18 10:43] VITALS: BP 134/57
--- NOTE | 2021-06-18 10:56 | NUR ---
Pain Clinic Assessment: 1. History of Osteoarthritis: LUMBAR SPINE BILAT KNEES History of Rheumatoid Arthritis: Not Applicable 2. Height: 5 ft. 3 in. 160.0 cm. Weight: 193.6 lb. oz. 87.816 kg. Patient's BMI: 34.3 3. Vital Signs: BP: 134/57 Pulse: 81 Resp: 20 Temp: 02 Sat: 96 ECG Mon: 4. Pain Intensity: 1 TO 9 5. Fall Risk: Dizziness: Y Needs help standing or walking: N Fallen in the last 3 months: Y Fall risk comments: PT FELL GETTING UP AT NIGHT ON 06/16/21 6. Patient on Blood Thinner: None 7. History of Hypertension: Y 8. Opioid Therapy greater than 6 weeks: N Opiate Contract Signed: 9. Risk Assessment Tool Provided: 10. Functional Assessment Tool: 0 LOW RISK 11. Recreational Drug Use: Never Drug Type: Tobacco Use: Never Smoker Tobacco Type: Amount or Packs/day: How Many Years: Alcohol Use: Yes Frequency: Weekly Quant: 2
== END | disposition home or self-care (01) ==
LOC: PAIN 07:05
PROVIDERS: ATTEND Anesthesiology Pain Medicine
DX: M51.16 Intervertebral disc disorders with radiculopathy, lumbar region (principal); M47.27 Other spondylosis with radiculopathy, lumbosacral region; M47.26 Other spondylosis with radiculopathy, lumbar region; M48.061 Spinal stenosis, lumbar region without neurogenic claudication; G89.29 Other chronic pain; I10 Essential (primary) hypertension; M19.90 Unspecified osteoarthritis, unspecified site; Z98.890 Other specified postprocedural states; Z79.899 Other long term (current) drug therapy; Z88.2 Allergy status to sulfonamides

== ENCOUNTER → 2021-09-17 | Outpatient (CLI) | payer OTHER ==
[~2021-09-17] VITALS: Ht 160 cm; Wt 82.3 kg
[~2021-09-17] MED LIST changes: +LOPRESSOR50 MG PO; +TORSEMIDE20 MG PO
--- NOTE | ~2021-09-17 | HPC ---
[facility] [place] [address] PAIN MANAGEMENT CONSULTATION Name: CATRACHITO CRISTINA Room #: REG [facility]#: [id number] Admission: 09/17/21 Attend Phys: Olegario Matthews DO Discharge: Date of : 38 Report #: [id number] THIS REPORT FOR: cc: RENEE CASTREJON Physician not on staff Olegario Matthews DO ~ cc: Renee Castrejon DATE OF SERVICE: 09/17/2021 CHIEF COMPLAINT: Low back pain, left lower extremity pain with paresthesias. HISTORY OF PRESENT ILLNESS: As you know, the patient is a very pleasant 81-year-old female, returning in followup visit requesting to undergo lumbar epidural injection under fluoroscopic guidance. The patient has had longstanding history of lumbar radiculopathy, which has been treated successfully with epidural injections. The patient underwent an injection most recently with our services in 04/2021. She states that injection provided improvement in symptoms of 70%, lasting for nearly 3 months. The patient reports that she was recently hospitalized for 5 days for workup of congestive heart failure. It is noted that the patient's mitral valve has significant regurgitation and is going to require repair. The patient has not been started on anticoagulants in regards to this as we have checked with the pharmacy prior to the patient returning today. She returns requesting a lumbar epidural injection under fluoroscopic guidance in hopes of improving pain. She is placing pain score anywhere from 1-9/10 depending on activity. ALLERGIES: SULFA. CURRENT MEDICATIONS: We have rectified the patient's records, corrected for the prescriptions. Following was prescribed for the patient: Aspirin 81 mg per day, gabapentin 300 mg 3 tabs t.i.d., omega-3 fish oil, cyanocobalamin 5000 mcg per day, alprazolam 0.5 mg p.o. at bedtime, vitamin D3 125 mcg per day, atorvastatin 40 mg once a day, lisinopril/hydrochlorothiazide 20/25 mg once a day. SOCIAL HISTORY: The patient denies tobacco, alcohol, or IV or illicit drug use. She is retired, accompanied by her today. IMAGING: No new imaging available. PQRS: The patient has known changes of arthritic nature involving the lumbar spine, bilateral hips, and knees. No rheumatoid arthritis. The patient is placing pain intensity anywhere from 1-9/10 depending on activity. She is not a fall risk typically, but did have a fall, getting up in the evening hours of 06/16/2021, tripping over objects at home. This has been corrected. She is falling over objects around the carpeting. She is [place] [address] PAIN MANAGEMENT CONSULTATION Name: CATRACHITO CRISTINA Room #: REG [facility]#: [id number] Admission: 09/17/21 Attend Phys: Olegario Matthews DO Discharge: Date of : 38 Report #: [id number] is treated for hypertension. She is not on opioids and has a low opioid addiction potential based on assessment tool. Pain impact is 37/70, moderate interference of daily activities secondary to pain. PHYSICAL EXAMINATION: VITAL SIGNS: Blood pressure 134/57, pulse 81, respiratory rate 20, unlabored. The patient is 96% on room air. Height 5 feet 3 inches tall, weight 193.6 pounds, BMI calculated 34.3. GENERAL: Well-developed, well-nourished, well-hydrated exogenously obese 81-year-old female, appearing stated age, pain is rated today anywhere from 1-9/10. HEENT: Normocephalic, atraumatic. She is wearing a mask in compliance with COVID-19 regulations. She is deemed a good historian. EXTREMITIES: Show no clubbing, no cyanosis. No appreciable edema. MUSCULOSKELETAL: Lower extremity strength remains symmetrical again today. Noted deconditioning bilaterally, but muscle bulk and tone is symmetrical in lower extremities. Seated straight leg raising negative. Supine straight leg raising is positive on the left. Jacek's test is negative bilaterally. Babinski's is negative. Gait appears mildly antalgic again today, favoring left lower extremity over right. Stance is slightly forward flexed to lumbar spine with loss of lordotic curvature. ASSESSMENT: 1. Symptomatic lumbar radiculopathy. 2. 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 3. Displacement of lumbar intervertebral disk with radiculopathy. 4. Lumbosacral spondylosis with radiculopathy. 5. Neural foraminal stenosis of lumbar spine. 6. Facet arthropathy of lumbar spine. 7. Chronic intractable pain. PLAN: 1. The patient has returned today in followup visit to undergo lumbar epidural injection under fluoroscopic guidance. She has had changes made in her medication management since her recent hospitalization and had voiced that she had been started on an anticoagulant. We have confirmed with the pharmacy that the patient is on no anticoagulants at this time, which would preclude the patient from undergoing an epidural injection. We have advised the patient that her medication that she is currently on would provide no concerning issues in regards to completing the lumbar epidural injection requested today. I have advised the patient not to report anticoagulant therapy unless she is currently on that as this could provide difficulty in receiving treatment in the future. We have given the patient a reconciliation of her medication, which is correct as of this morning. The patient has been advised risks and benefits of a lumbar epidural injection, states understood and wished to proceed. 3. No medication changes made at today's visit. The patient will continue [address] [address] PAIN MANAGEMENT CONSULTATION Name: CATRACHITO CRISTINA Room #: REG [facility]#: [id number] Admission: 09/17/21 Attend Phys: Olegario Matthews DO Discharge: Date of : 38 Report #: [id number] current medical therapy as prior prescribed. 4. Plan to see the patient back in followup visit on an as needed basis for the next in the series of lumbar epidural injections. I am hopeful the patient will once again see good and prolonged benefit with the epidural injection today. PROCEDURE NOTE: DESCRIPTION OF PROCEDURE: L5-S1 left parasagittal epidural steroid injection under fluoroscopic guidance. This is the second procedure of the first series that the patient is undergoing. After obtaining written consent, the patient was taken back to the fluoroscopy suite, placed in a prone position with pillow under the abdomen to decrease lumbar lordosis. The skin overlying the lumbosacral area was then prepped and draped in aseptic fashion. The L5-S1 vertebral interspace was then identified by AP fluoroscopy. The skin and subcutaneous tissue overlying the target site of injection was anesthetized with 3 mL 1% lidocaine. A 20-gauge 3-1/2 inch Tuohy needle was then advanced under fluoroscopic guidance towards the epidural space using a left parasagittal approach. The epidural space was identified using loss of resistance to air technique. After negative aspiration for heme or cerebrospinal fluid, a total of 1 mL of Omnipaque was injected. A lumbar epidurogram was confirmed using both AP and lateral fluoroscopy. After negative aspiration for heme or cerebrospinal fluid, 5 mL solution containing 2 mL 40 mg per mL 80 mg total triamcinolone along with 3 mL of lidocaine 1% was injected in increments. Contrast spread was noted in the posterior epidural space. The needle was then retracted approximately half way and needle tract flushed with 1 mL of 1% lidocaine. Needle was then removed. There were no apparent sensory or motor deficits in the lower extremity following the procedure. A sterile bandage was placed over the injection site. The heart rate, pulse, oximetry and blood pressure were continuously monitored after the procedure. There were no apparent complications. The patient tolerated the procedure well and was carefully escorted to the recovery room in stable condition. There were no apparent complications. After meeting discharge criteria, the patient was then discharged home. By: [id number] Olegario Matthews DO /lennox
[2021-09-17 08:17] VITALS: BP 129/69
--- NOTE | 2021-09-17 08:27 | NUR ---
Pain Clinic Assessment: 1. History of Osteoarthritis: LUMBAR SPINE BILAT KNEES History of Rheumatoid Arthritis: Not Applicable 2. Height: 5 ft. 3 in. 160.0 cm. Weight: 181.4 lb. oz. 82.283 kg. Patient's BMI: 32.1 3. Vital Signs: BP: 129/69 Pulse: 61 Resp: 18 Temp: 02 Sat: 97 ECG Mon: 4. Pain Intensity: 6 5. Fall Risk: Dizziness: N Needs help standing or walking: N Fallen in the last 3 months: N Fall risk comments: \ 6. Patient on Blood Thinner: None 7. History of Hypertension: Y 8. Opioid Therapy greater than 6 weeks: N Opiate Contract Signed: 9. Risk Assessment Tool Provided: 10. Functional Assessment Tool: 0 LOW RISK 11. Recreational Drug Use: Never Drug Type: Tobacco Use: Never Smoker Tobacco Type: Amount or Packs/day: How Many Years: Alcohol Use: No Frequency: Quant:
--- NOTE | 2021-09-17 09:59 | NUR ---
Spoke with Archana at [facility] [phone]. Verified new meds prescribed to pt. Metoprolol 25 mg 1 1/2 tab BID & Torsemide 20 mg BID. In addition, verified patient is not currently taking any blood thinners.
== END | disposition home or self-care (01) ==
LOC: PAIN 06:59
PROVIDERS: ATTEND Anesthesiology Pain Medicine
DX: M51.16 Intervertebral disc disorders with radiculopathy, lumbar region (principal); M47.27 Other spondylosis with radiculopathy, lumbosacral region; M47.26 Other spondylosis with radiculopathy, lumbar region; M48.061 Spinal stenosis, lumbar region without neurogenic claudication; G89.29 Other chronic pain; I10 Essential (primary) hypertension; M19.90 Unspecified osteoarthritis, unspecified site; Z98.890 Other specified postprocedural states; Z79.899 Other long term (current) drug therapy; Z88.2 Allergy status to sulfonamides